=== PATIENT | male | born 2000 | race Caucasian/White ===

== ENCOUNTER 2018-08-31 15:15 | Emergency (ER) | payer BC, SELFPAY ==
[2018-08-31 15:28] VITALS: BP 150/99; PULSE 123; RESP 16; TEMP 37; O2SAT 98
--- NOTE | 2018-08-31 15:47 | W.ED.GENAD ---
Discharge Plan Disposition Patient Disposition: HOME Condition: Good Discharge Details Chief Complaint: Dizzy/Sync Clinical Impression: Heart palpitations, Dehydration ED Provider: Terrell Olivas Discharge Instructions Instructions: Dehydration (ED) Discharge Data Discharge Physician: Terrell Olivas Medical Decision Making 18 yo male who denies any chronic medical problems who comes in with cc of feeling his heart racinig. HE states a few months ago he had episoes where he would pass out randomly and not during exertion, no recent episodes of passing out. [place] got [place] today as he goes to school here, smoked marijuana and after starting to feel his heart racing. Denies any pain. HAs had a cough. He is noted to be tachycardic in the 120's with no evidence of wpw, brugada or other abnormalities other than short pr on ecg. Given his wells score is moderate will obtain CTA to eval for pe. No ches tpain or pressure so doubt acs. I suspect this is drug related effects pt's labs unremarkable., HR is now 80 and sinus and symptoms resolved, could have been dehydration given he has only received IVF and he states he hasn't had anything to drink today. AWaiting results of cta cta shows no pe or other findings. I suspect dehydration, advised f/u with his school health provider and return precautions given Differential Diagnosis svt, pe, wpw, drug related effects ECG Data Attestation: I personally reviewed and interpreted this ECG (s) as follows: Prior ECG tracings: not available for review Interpretation: sinus tachycardia, short pr interval, normal axis, HPI General Mode of arrival: ambulatory. Date/Time Provider Initiated Documentation: 08/31/18 15:35. Limitations to Documentation: no limitations. Information obtained by: patient. History of Present Illness 18 year old M presents to the emergency department with the chief complaint of fast heart rate, described as moderate, and is localized to the chest. Patient reports no radiation. Patient started experiencing this hour(s) (1) and it has been constant. No relieving factors improve symptom(s), No exacerbating factors reported . Patient notes cough. Patient did receive the following treatments prior to arrival, none General Stated Complaint: Dizzy/Sync JUSTA: 2 Review of Systems Review of Systems All systems reviewed & are unremarkable except as noted in HPI and below Constitutional Denies chills, Denies fever(s) and Denies weakness Eyes Denies loss of vision ENT Denies change in voice Cardiovascular Denies dyspnea Respiratory Denies dyspnea Gastrointestinal Denies abdominal pain, Denies nausea and Denies vomiting Genitourinary Denies dysuria Musculoskeletal Denies joint swelling Integumentary/Breasts Denies rash Neurologic Denies loss of vision and Denies weakness Psychiatric Denies depression Endocrine Denies cold intolerance and Denies heat intolerance Allergic/Immunologic Reports urticaria Exam Const General: no acute distress Orientation: alert HENNY Head: normal to inspection Ears: external ears normal General nose exam: external nose normal Mouth: moist mucous membranes Eyes General: appearance normal, both eyes and all related structures Neck Neck: normal visual inspection Resp Effort & Inspection: normal respiratory effort and able to speak in complete sentences Cardio Palpation: normal PMI Rate: tachycardic Rhythm: regular rhythm Skin General skin exam: no rashes or lesions noted Neuro General: alert and oriented x3 Extrem General: normal to inspection Psych Mental Status: mental status grossly normal Course Vital Signs Temperature 37.0 C 08/31/18 15:28 Pulse 123 H 08/31/18 15:28 Respiratory Rate 16 08/31/18 15:28 Blood Pressure 150/99 H 08/31/18 15:28 Pulse Oximetry 98 08/31/18 15:28 Temperature 37.0 C 08/31/18 15:28 Temperature Source Skin 08/31/18 15:28 Pulse 123 H 08/31/18 15:28 Respiratory Rate 16 08/31/18 15:28 Blood Pressure 150/99 H 08/31/18 15:28 Blood Pressure Position Sitting 08/31/18 15:28 Pulse Oximetry 98 08/31/18 15:28 Oxygen Delivery Method Room Air 08/31/18 15:28 Oxygen Flow Rate 0 08/31/18 15:28 Pain Level 5 08/31/18 15:28
--- NOTE | 2018-08-31 15:51 | ED.GENADUL_ITS ---
Discharge Plan Disposition Patient Disposition: HOME Condition: Good Discharge Details Chief Complaint: Dizzy/Sync Clinical Impression: Heart palpitations, Dehydration ED Provider: Terrell Olivas Discharge Instructions Instructions: Dehydration (ED) Discharge Data Discharge Physician: Terrell Olivas Medical Decision Making 18 yo male who denies any chronic medical problems who comes in with cc of feeling his heart racinig. HE states a few months ago he had episoes where he would pass out randomly and not during exertion, no recent episodes of passing out. [place] just got [place] today as he goes to school here, smoked marijuana and after starting to feel his heart racing. Denies any pain. HAs had a cough. He is noted to be tachycardic in the 120's with no evidence of wpw, brugada or other abnormalities other than short pr on ecg. Given his wells score is moderate will obtain CTA to eval for pe. No ches tpain or pressure so doubt acs. I suspect this is drug related effects pt's labs unremarkable., HR is now 80 and sinus and symptoms resolved, could have been dehydration given he has only received IVF and he states he hasn't had anything to drink today. AWaiting results of cta cta shows no pe or other findings. I suspect dehydration, advised f/u with his school health provider and return precautions given Differential Diagnosis svt, pe, wpw, drug related effects ECG Data Attestation: I personally reviewed and interpreted this ECG (s) as follows: Prior ECG tracings: not available for review Interpretation: sinus tachycardia, short pr interval, normal axis, HPI General Mode of arrival: ambulatory . Date/Time Provider Initiated Documentation: 08/31/18 15:35 . Limitations to Documentation: no limitations . Information obtained by: patient . History of Present Illness 18 year old M presents to the emergency department with the chief complaint of fast heart rate, described as moderate, and is localized to the chest. Patient reports no radiation. Patient started experiencing this hour(s) (1) and it has been constant. No relieving factors improve symptom(s), No exacerbating factors reported . Patient notes cough. Patient did receive the following treatments prior to arrival, none General Stated Complaint: Dizzy/Sync JUSTA: 2 Review of Systems Review of Systems All systems reviewed & are unremarkable except as noted in HPI and below Constitutional Denies chills, Denies fever(s) and Denies weakness Eyes Denies loss of vision ENT Denies change in voice Cardiovascular Denies dyspnea Respiratory Denies dyspnea Gastrointestinal Denies abdominal pain, Denies nausea and Denies vomiting Genitourinary Denies dysuria Musculoskeletal Denies joint swelling Integumentary/Breasts Denies rash Neurologic Denies loss of vision and Denies weakness Psychiatric Denies depression Endocrine Denies cold intolerance and Denies heat intolerance Allergic/Immunologic Reports urticaria Exam Const General: no acute distress Orientation: alert HENVA Head: normal to inspection Ears: external ears normal General nose exam: external nose normal Mouth: moist mucous membranes Eyes General: appearance normal, both eyes and all related structures Neck Neck: normal visual inspection Resp Effort & Inspection: normal respiratory effort and able to speak in complete sentences Cardio Palpation: normal PMI Rate: tachycardic Rhythm: regular rhythm Skin General skin exam: no rashes or lesions noted Neuro General: alert and oriented x3 Extrem General: normal to inspection Psych Mental Status: mental status grossly normal Course Vital Signs Temperature 37.0 C 08/31/18 15:28 Pulse 123 H 08/31/18 15:28 Respiratory Rate 16 08/31/18 15:28 Blood Pressure 150/99 H 08/31/18 15:28 Pulse Oximetry 98 08/31/18 15:28 Temperature 37.0 C 08/31/18 15:28 Temperature Source Skin 08/31/18 15:28 Pulse 123 H 08/31/18 15:28 Respiratory Rate 16 08/31/18 15:28 Blood Pressure 150/99 H 08/31/18 15:28 Blood Pressure Position Sitting 08/31/18 15:28 Pulse Oximetry 98 08/31/18 15:28 Oxygen Delivery Method Room Air 08/31/18 15:28 Oxygen Flow Rate 0 08/31/18 15:28 Pain Level 5 08/31/18 15:28
[2018-08-31 16:10] LABS: Abs Immature Grans 0.01 k/cumm (0.0-0.09); Absolute Basophil Count 0.02 k/cumm (0.0-0.2); Absolute Eosinophil Count 0.02 k/cumm (0.0-0.7); Absolute Lymphocyte Count 1.86 k/cumm (1.2-3.4); Absolute Monocyte Count 0.63 k/cumm (0.11-0.7); Absolute Neutrophil Count 5.28 k/cumm (1.2-6.7); Basophils % 0.3; Eosinophils % 0.3; HCT 45.9 % (40.0-50.0); HGB 16.4 g/dL (13.5-17.5); Immature Grans % 0.1; Lymphocytes % 23.8; Mean Corp. HGB Concentration 35.7 g/dL (32.0-36.0); Mean Corpuscular Hemoglobin 30.3 pg (27.0-33.0); Mean Corpuscular Volume 84.8 fL (80-95); Mean Platelet Volume 11.6 fL (8.0-11.0); Monocytes % 8.1; Neutrophils % 67.4; Platelet Count 209 x1000/uL (130-400); RBC 5.41 m/cumm (4.50-6.00); RBC Distribution Width 12.5 % (11.8-14.1); White Blood Cell Count 7.82 k/cumm (4.4-10.8)
[2018-08-31 16:22] VITALS: PULSE 108; O2SAT 95
[2018-08-31 16:24] LABS: INR 1.2 (1.0-3.5); PTT Activated 22.9 sec (21.0-31.4); Prothrombin Time 11.3 sec (9.3-10.8)
--- NOTE | 2018-08-31 16:24 | DI.CT_ITS ---
SYMPTOMS/DIAGNOSIS: CHEST PAIN AND TACHYCARDIA CT ANGIOGRAPHY, CHEST: CT angiography was performed with multi slice acquisition and multi planar and 3D reconstruction. CT angiography of the chest was performed with a bolus infusion of 100 cc of Omnipaque 350. Images obtained through the upper abdomen show unremarkable appearance of liver, spleen, pancreas, gallbladder, bile ducts, adrenals and kidneys. No aortic dissection or aneurysm. Major vascular branches of the aorta and the thorax and upper abdomen are unremarkable. No evidence of pulmonary embolic disease. Lungs are clear and well expanded. Tracheobronchial tree appears intact. No pleural effusion seen. CONCLUSION: Negative CTA of the chest.
[2018-08-31] MEDS: Omnipaque 350 MG/ML 100 ML BTL IJ (16:26)
[2018-08-31 16:28] LABS: ALT 20 U/L (12-78); AST 14 U/L (15-37); Albumin 4.6 g/dL (3.4-5.0); Alkaline Phosphatase 56 U/L (46-116); Anion Gap 12.8 mmol/L (3-11); BUN 15 mg/dL (7-18); Bilirubin, Total 0.7 mg/dL (0.2-1.0); CO2 25.2 mmol/L (21.0-32.0); CREATININE 0.89 mg/dL (0.70-1.30); Chloride 102 mmol/L (98-107); Glucose 119 mg/dL (70-100); Magnesium 1.9 mg/dL (1.8-2.4); Potassium 3.6 mmol/L (3.5-5.1); Sodium 140 mmol/L (136-145)
[2018-08-31 16:29] LABS: Troponin I < 0.02 ng/mL (0.00-0.06)
[2018-08-31 16:43] VITALS: BP 132/73; PULSE 99; RESP 21; O2SAT 97
[2018-08-31] MEDS: Normal Saline 1,000 ML 1000 ML IV (16:43)
--- NOTE | 2018-08-31 17:04 | DI.VRAD_ITS ---
EXAM: CT Angiography Chest With Intravenous Contrast EXAM DATE/TIME: 08/31/2018 3:46 PM CLINICAL HISTORY: 18 years old, male; Pain; Chest pain and other: Tachycardia; Type not specified; Patient HX: Chest pain and tachycardia TECHNIQUE: Axial computed tomographic angiography images of the chest with intravenous contrast using CT angiography protocol. Coronal and sagittal reformatted images were created and reviewed. MIP reconstructed images were created and reviewed. COMPARISON: No relevant prior studies available. FINDINGS: Pulmonary arteries: No evidence of pulmonary embolus to the segmental level. Aorta: No aneurysm of the ascending aorta. No dissection of the aorta. Lungs: Normal. No consolidation. No masses. Pleural space: Normal. No pneumothorax. No pleural effusion. Heart: Normal. No cardiomegaly. No pericardial effusion. Bones/joints: Unremarkable. No acute fracture. Soft tissues: Unremarkable. Lymph nodes: Unremarkable. No enlarged lymph nodes. Other findings: Plate and screws in the left clavicle IMPRESSION: 1. No evidence of pulmonary embolus to the segmental level. 2. No aneurysm of the ascending aorta. 3. No dissection of the aorta. Dictated and Authenticated by: John Guzman MD. Ordering:MANI RENEE MD
[2018-08-31 17:48] VITALS: BP 134/83; PULSE 78; RESP 20; TEMP 37.4; O2SAT 96
== END 2018-08-31 17:52 | disposition home or self-care (01) ==
LOC: ER 17:58
PROVIDERS: Emergency Provider Emergency Medicine
DX: R00.2 Palpitations (principal); E86.0 Dehydration
CPT/HCPCS: 36415; 71275; 80053; 93005; 96360; 99285; 83735; 84484; 85025; 85610; 85730; 93010; J3490

== ENCOUNTER 2019-02-16 11:55 | Emergency (ER) | payer BC, SELFPAY ==
[2019-02-16 12:03] VITALS: BP 117/97; PULSE 61; RESP 15; TEMP 37; O2SAT 100
--- NOTE | 2019-02-16 12:33 | DI.RAD_ITS ---
SYMPTOMS/DIAGNOSIS: COUGH PA AND LATERAL CHEST: The heart is normal in size. The lungs are clear. The mediastinal structures and pleura appear intact. CONCLUSION: Normal chest.
[2019-02-16 12:39] VITALS: RESP 4
[2019-02-16] MEDS: Albuterol/Ipratropium 3 ML UPD VIAL UPD (12:39)
--- NOTE | 2019-02-16 13:08 | W.ED.GENAD ---
Discharge Plan Disposition Patient Disposition: HOME Condition: Stable Discharge Details Chief Complaint: RespSymp Clinical Impression: Cough, RAD (reactive airway disease) Primary Care Provider: Marta,Local ED Provider: Brandi Stevens Home Meds and New Rx's Prescriptions: No Action No Known Home Meds RF: 0 Discharge Instructions Instructions: Reactive Airways Disease (ED), Acute Cough (ED) Additional Instructions: Please return immediately to the emergency department if you develop any new or worsening symptoms or if you become otherwise concerned. It is extremely important that you make an appointment to be seen in follow-up this visit as soon as possible by your primary care doctor. Stand Alone Forms: School Release Discharge Data Discharge Date/Time-TO BE ENTERED AT DEPARTURE: 02/16/19 14:15 Medical Decision Making Stan Melendez is a 19-year-old man without history of major medical problems who presented to the emergency department for 3 days of productive cough, also feeling mildly short of breath in a way that does not limit his activities. On exam patient is very well and nontoxic appearing. He has wheeze throughout bilaterally without rales or rhonchi and is in no respiratory distress. Concern for influenza versus pneumonia versus other viral respiratory illness, reactive airway disease component. Plan for DuoNeb, chest x-ray, flu swab. Flu swab negative. Chest x-ray interpreted by myself in conjunction with radiology as negative. Pt with wheeze completely resolved on auscultation after duoneb, Pt continues to be very well and non-toxic appearing. Pt reports that he feels much better after receiving breathing treatment, currently at baseline and denies any symptoms. Plan for albuterol and spacer for home use, outpt f/u. I had a lengthy discussion with the Pt re: RTED precautions, home care, importance of outpt f/u. Pt was discharged to home with clear plan for outpt f/u. All questions were answered. Medical Records Medical records reviewed: Yes I reviewed the patient's medical records. Imaging Data Radiologic Study: Attestation: I personally reviewed and interpreted this imaging study as follows: Radiologist's impression: 13:49: CXR No acute findings per radiology Lab Data Lab results reviewed: Yes I reviewed the patient's lab results. HPI General Mode of arrival: ambulatory. Date/Time Provider Initiated Documentation: 02/16/19 12:33. Limitations to Documentation: no limitations. Information obtained by: patient, RN notes reviewed and old records reviewed. HPI Narrative: Roni Melendez is a 19-year-old man without history of major medical problems presenting to the emergency department with cough. Patient reports that he has had a productive cough for the past 3 days, and has also felt mildly short of breath. He denies having any pain. He has had no fevers, no vomiting, no diarrhea, no rash. He has been eating and drinking as usual. No recent travel. Patient is a student, and went to [employer] for his cough, where he was told to come to the emergency department. Does not have a diagnosis of asthma. Related Data Home Medications Medication Instructions Recorded Confirmed Unknown [No Known Home Meds] 02/16/19 02/16/19 Allergies Allergy/AdvReac Type Severity Reaction Status Date / Time No Known Allergies Allergy Unverified 02/16/19 12:19 General Stated Complaint: RespSymp JUSTA: 3 Review of Systems Review of Systems Constitutional: denies fevers Eyes: denies eye pain ENT: denies facial pain, dental pain, sore throat Cardiovascular: denies chest pain, edema Respiratory: Reports mild old SOB, productive cough GI: denies abdominal pain, vomiting, diarrhea : denies flank pain MSK: denies back pain, neck pain, arthralgias, myalgias Skin: denies rash Neuro: denies headaches, numbness, weakness PFSH Social History Smoking/Tobacco Use Status: Never Alcohol Intake: current Alcohol Intake frequency: a few times a month Drug use: Occasionally Substance use type: marijuana Do you feel safe at home: Yes Do you feel safe in your relationship?: Yes Exam Narrative Exam Narrative: Constitutional: well and [id number], pleasant, conversing normally HENT: head atraumatic/normocephalic/normal inspection, mucous membranes moist Eyes: conjunctiva normal, sclera normal, pupils 3mm b/l Neck: no stridor, normal ROM, trachea midline Resp: normal work of breathing, wheeze bilaterally throughout, no rhonchi, no rales Cardio: normal rate, normal rhythm, no murmur appreciated GI: abdomen soft, non-tender, non-distended Back: normal inspection, no rash Neuro: alert, not altered, grossly non-focal, normal tone Psych: normal mood, normal affect, normal behavior Course Vital Signs Temperature 37 C 02/16/19 12:03 Pulse 61 02/16/19 12:03 Respiratory Rate 15 02/16/19 12:03 Blood Pressure 117/97 H 02/16/19 12:03 Pulse Oximetry 100 02/16/19 12:03 Temperature 37 C 02/16/19 12:03 Temperature Source Oral 02/16/19 12:03 Pulse 61 02/16/19 12:03 Respiratory Rate 15 02/16/19 12:03 Respiratory Effort Non-Labored 02/16/19 12:10 Respiratory Depth Normal 02/16/19 12:10 Blood Pressure 117/97 H 02/16/19 12:03 Blood Pressure Position Sitting 02/16/19 12:03 Pulse Oximetry 100 02/16/19 12:03 Oxygen Delivery Method Room Air 02/16/19 12:03 Oxygen Flow Rate 0 02/16/19 12:03 Pain Level 0 02/16/19 12:03 Lab/Test Results Lab/Test Results: 02/16/19 12:15 Nasopharynx Influenza Types A,B Antigen - Final
--- NOTE | 2019-02-16 13:51 | ED.GENADUL_ITS ---
Discharge Plan Disposition Patient Disposition: HOME Condition: Stable Discharge Details Chief Complaint: RespSymp Clinical Impression: Cough, RAD (reactive airway disease) Primary Care Provider: Marta,Local ED Provider: Brandi Stevens Home Meds and New Rx's Prescriptions: No Action No Known Home Meds RF: 0 Discharge Instructions Instructions: Reactive Airways Disease (ED), Acute Cough (ED) Additional Instructions: Please return immediately to the emergency department if you develop any new or worsening symptoms or if you become otherwise concerned. It is extremely i mportant that you make an appointment to be seen in follow-up this visit as soon as possible by your primary care doctor. Stand Alone Forms: School Release Discharge Data Discharge Date/Time-TO BE ENTERED AT DEPARTURE: 02/16/19 14:15 Medical Decision Making Stan Melendez is a 19-year-old man without history of major medical problems who presented to the emergency department for 3 days of productive cough, also feeling mildly short of breath in a way that does not limit his activities. On exam patient is very well and nontoxic appearing. He has wheeze throughout bilaterally without rales or rhonchi and is in no respiratory distress. Concern for influenza versus pneumonia versus other viral respiratory illness, reactive airway disease component. Plan for DuoNeb, chest x-ray, flu swab. Flu swab negative. Chest x-ray interpreted by myself in conjunction with radiology as negative. Pt with wheeze completely resolved on auscultation after duoneb, Pt continues to be very well and non-toxic appearing. Pt reports that he feels much better after receiving breathing treatment, currently at baseline and denies any symptoms. Plan for albuterol and spacer for home use, outpt f/u. I had a lengthy discussion with the Pt re: RTED precautions, home care, importance of outpt f/u. Pt was discharged to home with clear plan for outpt f/u. All questions were answered. Medical Records Medical records reviewed: Yes I reviewed the patient's medical records. Imaging Data Radiologic Study: Attestation: I personally reviewed and interpreted this imaging study as follows: Radiologist's impression: 13:49: CXR No acute findings per radiology Lab Data Lab results reviewed: Yes I reviewed the patient's lab results. HPI General Mode of arrival: ambulatory . Date/Time Provider Initiated Documentation: 02/16/19 12:33 . Limitations to Documentation: no limitations . Information obtained by: patient, RN notes reviewed and old records reviewed . HPI Narrative: Roni Melendez is a 19-year-old man without history of major med ical problems presenting to the emergency department with cough. Patient reports that he has had a productive cough for the past 3 days, and has also felt mildly short of breath. He denies having any pain. He has had no fevers, no vomiting, no diarrhea, no rash. He has been eating and drinking as usual. No recent travel. Patient is a student, and went to [employer] for his cough, where he was told to come to the emergency department. Does not have a diagnosis of asthma. Related Data Home Medications Medication Instructions Recorded Confirmed Unknown [No Known Home Meds] 02/16/19 02/16/19 Allergies Allergy/AdvReac Type Severity Reaction Status Date / Time No Known Allergies Allergy Unverified 02/16/19 12:19 General Stated Complaint: RespSymp JUSTA: 3 Review of Systems Review of Systems Constitutional: denies fevers Eyes: denies eye pain ENT: denies facial pain, dental pain, sore throat Cardiovascular: denies chest pain, edema Respiratory: Reports mild old SOB, productive cough GI: denies abdominal pain, vomiting, diarrhea : denies flank pain MSK: denies back pain, neck pain, arthralgias, myalgias Skin: denies rash Neuro: denies headaches, numbness, weakness [facility], [facility] Social History Smoking/Tobacco Use Status: Never Alcohol Intake: current Alcohol Intake frequency: a few times a month Drug use: Occasionally Substance use type: marijuana Do you feel safe at home: Yes Do you feel safe in your relationship?: Yes Exam Narrative Exam Narrative: Constitutional: well and [id number], pleasant, conversing normally HENT: head atraumatic/normocephalic/normal inspection, mucous membranes moist Eyes: conjunctiva normal, sclera normal, pupils 3mm b/l Neck: no stridor, normal ROM, trachea midline Resp: normal work of breathing, wheeze bilaterally throughout, no rhonchi, no rales Cardio: normal rate, normal rhythm, no murmur appreciated GI: abdomen soft, non-tender, non-distended Back: normal inspection, no rash Neuro: alert, not altered, grossly non-focal, normal tone Psych: normal mood, normal affect, normal behavior Course Vital Signs Temperature 37 C 02/16/19 12:03 Pulse 61 02/16/19 12:03 Respiratory Rate 15 02/16/19 12:03 Blood Pressure 117/97 H 02/16/19 12:03 Pulse Oximetry 100 02/16/19 12:03 Temperature 37 C 02/16/19 12:03 Temperature Source Oral 02/16/19 12:03 Pulse 61 02/16/19 12:03 Respiratory Rate 15 02/16/19 12:03 Respiratory Effort Non-Labored 02/16/19 12:10 Respiratory Depth Normal 02/16/19 12:10 Blood Pressure 117/97 H 02/16/19 12:03 Blood Pressure Position Sitting 02/16/19 12:03 Pulse Oximetry 100 02/16/19 12:03 Oxygen Delivery Method Room Air 02/16/19 12:03 Oxygen Flow Rate 0 02/16/19 12:03 Pain Level 0 02/16/19 12:03 Lab/Test Results Lab/Test Results: 02/16/19 12:15 Nasopharynx Influenza Types A,B Antigen - Final
[2019-02-16] MEDS: Albuterol HFA 8 GM 60 PUFF INH IH (14:03)
[2019-02-16] MEDS: Inhaler, Assist Device 1 EACH MC (14:03)
[2019-02-16 14:13] VITALS: PULSE 76; RESP 15; TEMP 36.8; O2SAT 98
== END 2019-02-16 14:15 | disposition home or self-care (01) ==
PROVIDERS: Emergency Provider Student in an Organized Health Care Education/Training Program
DX: R05 Cough (principal); J45.909 Unspecified asthma, uncomplicated
CPT/HCPCS: 87449; 94640; 99283; 71046; J7620

== ENCOUNTER 2019-05-02 15:08 | Emergency (ER) | payer BC, SELFPAY ==
[2019-05-02 15:27] VITALS: BP 127/65; RESP 16; TEMP 36.6; O2SAT 98
--- NOTE | 2019-05-02 16:07 | DI.RAD_ITS ---
SYMPTOM/DIAGNOSIS: TRAUMA, HIT TREE RIGHT WRIST: There is a small fracture fragment seen on one view at the posterior medial distal aspect of the hamate. No additional fractures are identified. There is no evidence of dislocation. IMPRESSION: Small fracture fragment of the distal ulnar aspect of the hamate.
--- NOTE | 2019-05-02 16:16 | W.ED.GENAD ---
Discharge Plan Disposition Patient Disposition: HOME Discharge Details Chief Complaint: Orthopedic Clinical Impression: Right wrist sprain, Closed hamate fracture Primary Care Provider: Marta,Local ED Provider: Ozzy Stevens Home Meds and New Rx's Prescriptions: No Action No Known Home Meds RF: 0 Discharge Instructions Instructions: Wrist Sprain (ED) Additional Instructions: Please take ibuprofen over the counter. Take 600mg by mouth every 6 hours as needed for pain. Keep the wrist splint intact for the next 2 weeks. Follow-up with orthopedics. Calll for an appointment. Return to the ER for any worsening or new concerning symptoms. Stand Alone Forms: Work Release Referrals: Eleuterio Mckenna MD [ [facility] STAFF PHYSICIAN] - Discharge Data Discharge Date/Time-TO BE ENTERED AT DEPARTURE: 05/02/19 17:30 Medical Decision Making 19-year-old male here after jamming his hand into a tree earlier today while mountain biking with ulnar wrist pain. Neurovascular intact distally. Consider fracture. Right wrist x-ray reviewed and interpreted by radiology: IMPRESSION: Acute cortical fracture of the hamate bone. I called and spoke with on-call orthopedic Dr. Mckenna and discussed the ED case presentation and course including diagnostic treatment results. Dr. Mckenna was able to review the x-ray. He recommended wrist splint and follow-up outpatient. Volar wrist splint applied. Patient neurovascular intact post splint application. Usual customary discharge instructions were provided. HPI General Mode of arrival: ambulatory. Date/Time Provider Initiated Documentation: 05/02/19 15:38. Limitations to Documentation: no limitations. Information obtained by: patient. HPI Narrative: 19-year-old male presents with chief complaint of right wrist pain. Patient notes that he was mountain biking and jammed his hand into a tree. This occurred just prior to arrival. He had pain in his ulnar wrist since the injury. No associated numbness or weakness. No other injury sustained Related Data Home Medications Medication Instructions Recorded Confirmed Unknown [No Known Home Meds] 02/16/19 02/16/19 Allergies Allergy/AdvReac Type Severity Reaction Status Date / Time No Known Allergies Allergy Unverified 02/16/19 12:19 General Stated Complaint: Orthopedic JUSTA: 4 Review of Systems Musculoskeletal Reports as per HPI Neurologic Reports as per HPI [facility] Social History Smoking/Tobacco Use Status: Never Alcohol Intake: current Alcohol Intake frequency: a few times a month Drug use: Occasionally Substance use type: marijuana Do you feel safe at home: Yes Do you feel safe in your relationship?: Yes Exam Cardio Rate: regular rate Rhythm: regular rhythm Pulses: radial pulses present on the right 2+ Neuro General: alert and awake Sensory Exam: no sensory deficits noted (Distal right digits) Extrem Right upper extremity: wrist Details: tenderness Location: of the distal ulna and normal ROM; no swelling, no ecchymosis and no deformity Course Vital Signs Temperature 36.6 C 05/02/19 15:27 Respiratory Rate 16 05/02/19 15:27 Blood Pressure 127/65 05/02/19 15:27 Pulse Oximetry 98 05/02/19 15:27 Temperature 36.6 C 05/02/19 15:27 Temperature Source Tympanic 05/02/19 15:27 Respiratory Rate 16 05/02/19 15:27 Respiratory Effort 05/02/19 15:31 Blood Pressure 127/65 05/02/19 15:27 Blood Pressure Position Sitting 05/02/19 15:27 Pulse Oximetry 98 05/02/19 15:27 Oxygen Delivery Method Room Air 05/02/19 15:27 Oxygen Flow Rate 0 05/02/19 15:27 Pain Level 5 05/02/19 15:27
--- NOTE | 2019-05-02 16:21 | ED.GENADUL_ITS ---
Discharge Plan Disposition Patient Disposition: HOME Discharge Details Chief Complaint: Orthopedic Clinical Impression: Right wrist sprain, Closed hamate fracture Primary Care Provider: Marta,Local ED Provider: Ozzy Stevens Home Meds and New Rx's Prescriptions: No Action No Known Home Meds RF: 0 Discharge Instructions Instructions: Wrist Sprain (ED) Additional Instructions: Please take ibuprofen over the counter. Take 600mg by mouth every 6 hours as needed for pain. Keep the wrist splint intact for the next 2 weeks. Follow-up with orthopedics. Calll for an appointment. Return to the ER for any worsening or new concerning symptoms. Stand Alone Forms: Work Release Referrals: Eleuterio Mckenna MD [ [facility] STAFF PHYSICIAN] - Discharge Data Discharge Date/Time-TO BE ENTERED AT DEPARTURE: 05/02/19 17:30 Medical Decision Making 19-year-old male here after jamming his hand into a tree earlier today while mountain biking with ulnar wrist pain. Neurovascular intact distally. Consider fracture. Right wrist x-ray reviewed and interpreted by radiology: IMPRESSION: Acute cortical fracture of the hamate bone. I called and spoke with on-call orthopedic Dr. Mckenna and discussed the ED case presentation and course including diagnostic treatment results. Dr. Mckenna was able to review the x-ray. He recommended wrist splint and follow- up outpatient. Volar wrist splint applied. Patient neurovascular intact post splint application. Usual customary discharge instructions were provided. HPI General Mode of arrival: ambulatory . Date/Time Provider Initiated Documentation: 05/02/19 15:38 . Limitations to Documentation: no limitations . Information obtained by: patient . HPI Narrative: 19-year-old male presents with chief complaint of right wrist pain. Patient notes that he was mountain biking and jammed his hand into a tree. This occurred just prior to arrival. He had pain in his ulnar wrist since the injury. No associated numbness or weakness. No other injury sustained Related Data Home Medications Medication Instructions Recorded Confirmed Unknown [No Known Home Meds] 02/16/19 02/16/19 Allergies Allergy/AdvReac Type Severity Reaction Status Date / Time No Known Allergies Allergy Unverified 02/16/19 12:19 General Stated Complaint: Orthopedic JUSTA: 4 Review of Systems Musculoskeletal Reports as per HPI Neurologic Reports as per HPI [facility] Social History Smoking/Tobacco Use Status: Never Alcohol Intake: current Alcohol Intake frequency: a few times a month Drug use: Occasionally Substance use type: marijuana Do you feel safe at home: Yes Do you feel safe in your relationship?: Yes Exam Cardio Rate: regular rate Rhythm: regular rhythm Pulses: radial pulses present on the right 2+ Neuro General: alert and awake Sensory Exam: no sensory deficits noted (Distal right digits) Extrem Right upper extremity: wrist Details: tenderness Location: of the distal ulna and normal ROM; no swelling, no ecchymosis and no deformity Course Vital Signs Temperature 36.6 C 05/02/19 15:27 Respiratory Rate 16 05/02/19 15:27 Blood Pressure 127/65 05/02/19 15:27 Pulse Oximetry 98 05/02/19 15:27 Temperature 36.6 C 05/02/19 15:27 Temperature Source Tympanic 05/02/19 15:27 Respiratory Rate 16 05/02/19 15:27 Respiratory Effort 05/02/19 15:31 Blood Pressure 127/65 05/02/19 15:27 Blood Pressure Position Sitting 05/02/19 15:27 Pulse Oximetry 98 05/02/19 15:27 Oxygen Delivery Method Room Air 05/02/19 15:27 Oxygen Flow Rate 0 05/02/19 15:27 Pain Level 5 05/02/19 15:27
--- NOTE | 2019-05-02 16:37 | DI.VRAD_ITS ---
EXAM: XR Right Wrist EXAM DATE/TIME: 05/02/2019 3:55 PM CLINICAL HISTORY: 19 years old, male; Pain; Wrist; Right; Patient HX: Trauma, hit tree TECHNIQUE: Imaging protocol: XR Right wrist. Views: 3 or more views. COMPARISON: No relevant prior studies available. FINDINGS: Bones/joints: 4 mm x 1 mm cortical fracture fragment adjacent to the dorsal lateral/radial aspect of the hamate. No dislocation. Soft tissues: Unremarkable. No radiopaque foreign body. No subcutaneous gas. IMPRESSION: Acute cortical fracture of the hamate bone. Dictated and Authenticated by: Leanne Herrera MD. Ordering:LOUANN Preciado MD
== END 2019-05-02 17:30 | disposition home or self-care (01) ==
PROVIDERS: Emergency Provider Student in an Organized Health Care Education/Training Program
DX: S62.141A Displaced fracture of body of hamate [unciform] bone, right wrist, initial encounter for closed fracture (principal); S63.501A Unspecified sprain of right wrist, initial encounter; V17.0XXA Pedal cycle driver injured in collision with fixed or stationary object in nontraffic accident, initial encounter
CPT/HCPCS: 99283; 73110; 99282; L3908

== ENCOUNTER 2020-05-02 09:01 | Outpatient (CLI) | payer BC, SELFPAY ==
[2020-05-04 07:33] LABS: COVID-19 RT-PCR Result NEGATIVE (Negative)
== END 2020-05-02 09:21 ==
PROVIDERS: PCP Nurse Practitioner Adult Health; Visit Provider Nurse Practitioner Adult Health
DX: Z11.59 Encounter for screening for other viral diseases (principal)
CPT/HCPCS: U0003

== ENCOUNTER 2021-05-18 11:03 | Outpatient (REF) | payer BC, SELFPAY ==
[2021-05-19 15:22] LABS: COVID-19 RT-PCR UVMMC Result Negative (Negative)
== END 2021-05-18 11:04 | disposition home or self-care (01) ==
LOC: LBN 11:03
PROVIDERS: PCP Family Medicine; Visit Provider Physician Assistant Medical
DX: R51.9 Headache, unspecified (principal); Z20.822 Contact with and (suspected) exposure to COVID-19; J02.9 Acute pharyngitis, unspecified
CPT/HCPCS: U0003; 87070